=== PATIENT | male | born 1945 | race Caucasian/White ===

== ENCOUNTER 2019-11-19 07:36 | Day surgery (SDC) | payer MEDICARE, OTHER ==
[~2019-11-19] VITALS: Ht 188 cm; Wt 101.2 kg
[~2019-11-19 07:36] MED LIST: AMLODIPINE BESY10 MG PO; ATORVASTATIN CA10 MG PO; HYDROCHLOROTH12.5 M1 PO; HYDROCODON-ACE1 EA10 PO; JANUVIA100 MG PO; KEFLEX500 MG PO; LANTUS100 UNITS/ SUB-Q; LISINOPRIL20 MG PO; LISINOPRIL40 MG PO; LISINOPRIL5 MG PO; METFORMIN HCL500 M1 PO; METOPROLOL SUCC25 MG PO; MULTI VITAMIN1 EACH PO; NOVOLOG FL100 UNIT/1 SUB-Q; OMEPRAZOLE20 MG PO; PRILOSEC10 MG PO; SIMVASTATIN20 MG PO; SIMVASTATIN40 MG PO; TRIAMTERENE-HC1 EAC2 PO; VICTOZA 2-0.6 MG/0.1 SUB-Q
--- NOTE | 2019-11-19 10:00 | NUR ---
11/19/19 Kiara Rust 2037 PATIENT ARRIVES TO PACU AWAKE BUT DROWSY. RESP EVEN AND UNLABORED, ROOM AIR SATS >95%. PATIENT DENIES PAIN OR NAUSEA. REPOSITIONS SELF TO BACK. SITTING UP DRINKING JUICE.
--- NOTE | 2019-11-19 11:19 | OR ---
[facility] [address], [place] [address] Signed DATE OF OPERATION: 11/19/2019 SURGEON: Marina Cervantes MD PREOPERATIVE DIAGNOSES: 1. Rectal bleeding. 2. Radical prostatectomy, status post radiation therapy. POSTOPERATIVE DIAGNOSES: 1. Distal radiation proctitis. 2. 6 mm polyp at 5 cm. 3. Multiple 4 mm polyps at 10 cm (mid rectum). 4. 7 mm polyp at 30 cm. 5. 7 mm polyp at 75 cm. 6. 7 mm and 4 mm polyps at hepatic flexure. 7. 6 mm cecal polyp (periappendiceal). 8. 8 mm polyp mid right colon (snare). 9. 8 mm polypoid lesion at proximal transverse colon. 10. 7 mm polypoid lesion at 50 cm. 11. 4 mm polyp at 25 cm. PROCEDURE: Colonoscopy with snare polypectomy and hot biopsy. ESTIMATED BLOOD LOSS: Minimal. INDICATIONS: Ralph is a 74-year-old gentleman who has gone through a radical prostatectomy followed by radiation treatment last year. He has had some rectal bleeding. It has been on a daily basis. He has never had a previous colonoscopy. In the office, I gave him a pamphlet on colonoscopy and we reviewed that together along with the risks and benefits. He understands there is risk including, but not limited to gas bloating, crampy abdominal pain, bleeding, perforation requiring surgery, and missed diagnosis. He told me there is no family history of colon cancer or polyps. He also understands the need for IV conscious sedation. He had expressed understanding and wished to proceed. DESCRIPTION OF PROCEDURE: Ralph was taken into our endoscopy suite and placed in the left lateral decubitus position. He was worried that he only took about half of his prep. He said he started Electronically Signed By: MARINA CERVANTES MD 11/19/19 1119 PATIENT NAME: RALPH GARVEY OPERATIVE REPORT DATE OF : 47 REPORT #: [id number] PHYSICIAN: MARINA CERVANTES MD PCP: LENO SALINAS MD REPORT IS CONFIDENTIAL AND NOT TO BE RELEASED WITHOUT AUTHORIZATION [facility] [address], [place] [address] Signed to vomit. He is actually quite clean at this time except for a couple of areas which we suctioned out for the most part. I think next time if he just takes the prep slower throughout the day, he will do fine. A digital rectal exam was performed and of course, the prostate has gone and there was some induration of scar tissue in that area. The adult colonoscope was introduced and he has the expected radiation proctitis in the distal portion of the rectum. We took a single biopsy for pathologic review. The above-mentioned polyps had all been removed with the help of hot biopsy forceps. We did use the snare in the mid right colon. The scope then passed readily round into the cecum itself. We could easily see the appendiceal orifice and the ileocecal valve. The scope was then slowly withdrawn. We had taken pictures throughout for photodocumentation. Once in the rectum, the scope had been retroflexed and again, he has minimal internal hemorrhoid tissue, but he does have the radiation proctitis. After this, the gas was suctioned out and the colonoscope removed. Ralph tolerated the procedure quite well. RECOMMENDATIONS: I will see Ralph back in my office in 7 to 14 days to review his results. Given his sure number of polyps, it is probably arroyo he repeat this in 12 to 18 months. Marian Cervantes MD ALB/MODL /[id number] cc: MD Marina Belcher MD Copies: LENO SALINAS MD, ANDREW L MD ~ Electronically Signed By: MARINA CERVANTES MD 11/19/19 1119 PATIENT NAME: RALPH GARVEY OPERATIVE REPORT DATE OF : 47 REPORT #: [id number] PHYSICIAN: MARINA CERVANTES MD PCP: LENO SALINAS MD REPORT IS CONFIDENTIAL AND NOT TO BE RELEASED WITHOUT AUTHORIZATION
--- NOTE | 2019-11-20 17:24 | PATH ---
[facility] [address] [place], [place] [address] Signed SPECIMEN(S): A COLON POLYP AT 10 CM SPECIMEN(S): B COLON POLYP AT 5 CM SPECIMEN(S): C COLON BIOPSY SPECIMEN(S): D COLON POLYP SPECIMEN(S): E COLON POLYP SPECIMEN(S): F HEPATIC FLEXURE POLYP SPECIMEN(S): G CECAL POLYP SPECIMEN(S): H MID ASCENDING POLYP SPECIMEN(S): I PROXIMAL TRANSVERSE SPECIMEN(S): J COLON POLYP AT 50 CM SPECIMEN(S): K COLON POLYP AT 25 CM SPECIMEN SOURCE: A. COLON POLYP AT 10 CM B. COLON POLYP AT 5 CM C. COLON BIOPSY D. COLON POLYP E. COLON POLYP F. HEPATIC FLEXURE POLYP G. CECAL POLYP H. MID ASCENDING POLYP I. PROXIMAL TRANSVERSE J. COLON POLYP AT 50 CM K. COLON POLYP AT 25 CM CLINICAL HISTORY: Screening. MICROSCOPIC DESCRIPTION: Histologic sections of all submitted blocks are examined by light microscopy. These findings, together with the gross examination, support the pathologic diagnosis. FINAL PATHOLOGIC DIAGNOSIS: A. Colon, polyp at 10 cm, polypectomy: - Fragments of hyperplastic polyp. - Negative for dysplasia or malignancy. B. Colon, polyp at 5 cm, polypectomy: - Fragments of hyperplastic polyp. - Negative for dysplasia or malignancy. C. Colon, biopsy: - Colonic mucosa with no histopathologic abnormality. PATIENT NAME: ANGELINA GARVEY YUSRA PATHOLOGY DATE OF : 47 REPORT #: [id number] PHYSICIAN: CURTIS PATHOLOGY PCP: LENO SALINAS MD REPORT IS CONFIDENTIAL AND NOT TO BE RELEASED WITHOUT AUTHORIZATION [facility] [address] [place], [place] [address] Signed - Negative for active, chronic, or microscopic colitis. - Negative for dysplasia or malignancy. D. Colon, polyp, polypectomy: - Hyperplastic polyp. - Negative for dysplasia or malignancy. E. Colon, polyp, polypectomy: - Tubular adenoma. - Negative for high-grade dysplasia or malignancy. F. Hepatic flexure, polyp, polypectomy: - Fragments of tubular adenoma. - Negative for high-grade dysplasia or malignancy. G. Colon, cecum, polyp, polypectomy: - Fragments of tubular adenoma. - Negative for high-grade dysplasia or malignancy. H. Colon, mid ascending, polyp, polypectomy: - Fragments of tubulovillous adenoma. - Negative for high-grade dysplasia or malignancy. I. Colon, proximal transverse, polyp, polypectomy: - Colonic mucosa with no histopathologic abnormality. - Negative for dysplasia or malignancy. J. Colon, polyp at 50 cm, polypectomy: - Fragments of hyperplastic polyp. - Negative for dysplasia or malignancy. K. Colon, polyp at 25 cm, polypectomy: - Hyperplastic polyp. - Negative for dysplasia or malignancy. COMMENT: Regarding specimen C: No features consistent with radiation colitis are identified. Regarding specimen I: Multiple additional deeper levels were examined. NAL:vlg:C2NR GROSS DESCRIPTION: Eleven specimens are received in eleven containers, labeled "KG." A. The specimen, labeled "KG, colon polyp at 10 cm," is received in formalin and consists of six hugo soft tissue fragment(s) that measure 0.2 cm in greatest dimension. The specimen is entirely submitted in cassette (A1). B. The specimen, labeled "KG, colon polyp at 5 cm," is received in formalin and consists of three hugo soft tissue fragment(s) that measure 0.2 cm in PATIENT NAME: ANGELINA GARVEY PATHOLOGY DATE OF : 47 REPORT #: [id number] PHYSICIAN: CURTIS KINGSLEY PCP: LENO SALINAS MD REPORT IS CONFIDENTIAL AND NOT TO BE RELEASED WITHOUT AUTHORIZATION [facility] [address] [place], [place] [address] Signed greatest dimension. The specimen is entirely submitted in cassette (B1). C. The specimen, labeled "KG, colon biopsy/prostate carcinoma radiation," is received in formalin and consists of one hugo soft tissue fragment(s) that measure 0.2 cm in greatest dimension. The specimen is entirely submitted in cassette (C1). D. The specimen, labeled "KG, colon polyp," is received in formalin and consists of one hugo soft tissue fragment(s) that measure 0.2 cm in greatest dimension. The specimen is entirely submitted in cassette (D1). E. The specimen, labeled "KG, colon polyp," is received in formalin and consists of one hugo soft tissue fragment(s) that measure 0.2 cm in greatest dimension. The specimen is entirely submitted in cassette (E1). F. The specimen, labeled "KG hepatic flexure polyp," is received in formalin and consists of six hugo soft tissue fragment(s) that measure 0.2 cm in greatest dimension. The specimen is entirely submitted in cassette (F1). G. The specimen, labeled "KG, cecum polyp," is received in formalin and consists of six hugo soft tissue fragment(s) that measure 0.2 cm in greatest dimension. The specimen is entirely submitted in cassette (G1). H. The specimen, labeled "KG, mid ascending colon polyp," is received in formalin and consists of five hugo soft tissue fragment(s) that measure 0.5 cm in greatest dimension. The specimen is entirely submitted in cassette (H1). I. The specimen, labeled "KG, proximal transverse colon biopsy," is received in formalin and consists of one hugo soft tissue fragment(s) that measure 0.2 cm in greatest dimension. The specimen is entirely submitted in cassette (I1). J. The specimen, labeled "KG, colon polyp at 50 cm," is received in formalin and consists of two hugo soft tissue fragment(s) that measure 0.2 cm in greatest dimension. The specimen is entirely submitted in cassette (J1). K. The specimen, labeled "KG, colon polyp at 25 cm," is received in formalin and consists of two hugo soft tissue fragment(s) that measure 0.2 cm in greatest dimension. The specimen is entirely submitted in cassette (K1). JS (under the direct supervision of a pathologist) The Gross Description was prepared using a voice recognition system. The PATIENT NAME: ANGELINA GARVEY PATHOLOGY DATE OF : 47 REPORT #: [id number] PHYSICIAN: CURTIS KINGSLEY PCP: LENO SALINAS MD REPORT IS CONFIDENTIAL AND NOT TO BE RELEASED WITHOUT AUTHORIZATION [address] [address] Signed report was reviewed for accuracy; however, sound-alike word errors, addition and/or deletions may occur. If there is any question about this report, please contact Client Services. PERFORMING LABORATORY: The technical component was performed by [facility], [address] [place] [id number] (Cable Armorer: Farzana Jain MD; CLIA# [id number]). [facility], [address] [place], [place] [address] [address] (CLIA# [id number]). Diagnostician: Parvin Correa MD Pathologist Electronically Signed 11/20/2019 Copies: ~ PATIENT NAME: ANGELINA GARVEY PATHOLOGY DATE OF : 47 REPORT #: [id number] PHYSICIAN: CURTIS PATHOLOGY PCP: LENO SALINAS MD REPORT IS CONFIDENTIAL AND NOT TO BE RELEASED WITHOUT AUTHORIZATION
== END 2019-11-19 10:25 | disposition home or self-care (01) ==
LOC: DS 07:36 → OPS 07:36 → DS 09:00 → OPS 10:25
PROVIDERS: ATTEND Colon & Rectal Surgery
PROC: 0DBE8ZZ Excision of Large Intestine, Via Natural or Artificial Opening Endoscopic (ICD-10-PCS; 2019-11-19)
PROC: 0DBL8ZZ Excision of Transverse Colon, Via Natural or Artificial Opening Endoscopic (ICD-10-PCS; 2019-11-19)
PROC: 0DBH8ZZ Excision of Cecum, Via Natural or Artificial Opening Endoscopic (ICD-10-PCS; 2019-11-19)
PROC: 0DBK8ZZ Excision of Ascending Colon, Via Natural or Artificial Opening Endoscopic (ICD-10-PCS; principal; 2019-11-19 09:00)
DX: D12.0 Benign neoplasm of cecum (principal); D12.2 Benign neoplasm of ascending colon; D12.3 Benign neoplasm of transverse colon; K62.7 Radiation proctitis; F17.210 Nicotine dependence, cigarettes, uncomplicated; Z85.46 Personal history of malignant neoplasm of prostate; Z90.79 Acquired absence of other genital organ(s); Z79.899 Other long term (current) drug therapy; Z79.4 Long term (current) use of insulin
CPT/HCPCS: 99153; G0500; J2250; J3010; J7121

== ENCOUNTER 2020-09-29 04:33 | Emergency (ER) | payer MEDICARE, OTHER ==
[~2020-09-29] VITALS: Ht 188 cm; Wt 101.2 kg
[2020-09-29] MEDS ORDERED: DICLOFENAC SOD100 G1 TOP (04:53)
[2020-09-29] MEDS ORDERED: DICLOFENAC SODI75 MG PO (06:33)
[2020-09-29] MEDS ORDERED: ULTRAM50 MG PO (06:33)
== END 2020-09-29 06:43 | disposition home or self-care (01) ==
LOC: ED 04:33
DX: R10.9 Unspecified abdominal pain (principal); I10 Essential (primary) hypertension; E11.9 Type 2 diabetes mellitus without complications; Z87.891 Personal history of nicotine dependence; Z79.899 Other long term (current) drug therapy; Z79.4 Long term (current) use of insulin
CPT/HCPCS: 74176; 80053; 80500; 81001; 85025; 96374; 99284-25; J1885

== ENCOUNTER 2024-06-24 14:53 | Inpatient (IN) | payer MEDICARE, OTHER ==
[~2024-06-24] VITALS: Ht 188 cm; Wt 90.9 kg
[~2024-06-24 14:53] MED LIST changes: +DICLOFENAC SOD100 G1 TOP; +DICLOFENAC SODI75 MG PO; +HYDROCODON-ACE1 EA11 PO; +ULTRAM50 MG PO; +VICTOZA 2-0.6 MG/0.1; -VICTOZA 2-0.6 MG/0.1 SUB-Q
[2024-06-24] MEDS ORDERED: ONDANSETRON ODT4 MG PO (15:09)
[2024-06-24] MEDS ORDERED: MOUNJARO10 MG/0.5 SUB-Q (15:09)
[2024-06-24] MEDS ORDERED: SODIUM CHLORIDE 0.9% 1,000 ML IV ONE ×3 (15:30→18:15)
[2024-06-24 15:34] LABS: BASOPHILS 0.5 % (0-2); HEMATOCRIT 30.3 % (35.0-50.0); LYMPHOCYTES 17.4 % (24-44); MCH 26.5 (27-36); MCHC 33.1 g/dl (30-36); MCV 80.1 fl (81-99); MONOCYTES 13.2 % (0-12); NEUTROPHILS 66.9 % (39-80); PLATELET COUNT 81 K/uL (140-440); RBC 3.78 M/ul (4.3-5.7); RDW 16.1 (10.5-15.0)
[2024-06-24 15:50] LABS: ALBUMIN 3.6 g/dL (3.4-5.0); ALBUMIN/GLOBULIN RATIO 1.33 (1.1-2.4); ANION GAP 14.4 (7-21); BILIRUBIN, TOTAL 0.7 mg/dL (0.2-1.0); BUN/CREATININE RATIO 14.75 (6.0-28.6); CALCIUM 8.6 mg/dL (8.5-10.1); CREATININE, SERUM 3.66 mg/dL (0.70-1.30); POTASSIUM 5.4 mmol/L (3.5-5.1); PROTEIN, TOTAL 6.3 g/dL (6.4-8.2)
[2024-06-24] MEDS ORDERED: LIDOCAINE 2% VISCOUS 6 ML SYR TOP ONE (17:30)
[2024-06-24 17:55] LABS: BILIRUBIN, URINE NEGATIVE (negative); BLOOD/HGB, URINE NEGATIVE (Negative); KETONE, URINE NEGATIVE (Negative); LEUK ESTERASE, URINE NEGATIVE (negative); NITRITE, URINE NEGATIVE (negative); PH, URINE 5.5 (5-7)
[2024-06-24] MEDS ORDERED: SODIUM CHLORIDE 0.9% 1,000 ML IV SCH (19:45)
[2024-06-24] MEDS ORDERED: ondansetron HCL 4 MG/2 ML VIAL IV PRN (19:45)
[2024-06-24 20:28] VITALS: BP 131/48
--- NOTE | 2024-06-24 21:00 | NUR ---
PT ADMITTED TO ROOM 120 VIA STRETCHER. VSS. WEIGHT OBTAINED. PT ALERT & ORIENTED. REPORTS NECK PAIN 09/03. LSC. 2L O2 N/C IN PLACE. HRR. BTA. LEAVITT CATH W/ CLEAR YELLOW URINE, 175cc EMPTIED. NS INITIATED TO LAC IV AT 125MLS/HR. PT REPORTED BEING HUNGRY, ATE 100% OF SANDWICH BOX DURING ADMISSION AND DRANK MILK. CALL LIGHT WITHIN REACH.
[2024-06-24 21:09] VITALS: BP 131/48
--- NOTE | 2024-06-24 22:38 | NUR ---
DR. OLIVIA NOTIFIED OF PT'S C/O NECK PAIN AND NO ORDERS FOR PAIN RELIEF. RECEIVED ORDERS FOR PRN TYLENOL AND DAILY LIDOCAINE PATCH.
[2024-06-24] MEDS ORDERED: ACETAMINOPHEN 325 MG TAB PO PRN (22:45)
--- NOTE | 2024-06-24 22:54 | NUR ---
PT SLEEPING SOUNDLY ON LEFT SIDE. APPEARS COMFORTABLE.
[2024-06-25] VITALS (7 sets, daily range): BP systolic 105–130; BP diastolic 41–58
--- NOTE | 2024-06-25 00:01 | NUR ---
PT REPOSITIONED SELF TO RIGHT SIDE. WARM BLANKET GIVEN FOR COLD FEET. LV LAC INFUSING NS WNL.
--- NOTE | 2024-06-25 00:45 | NUR ---
RATE REVIEWER OBTAINED VITALS AND I&O. LEAVITT BAG EMPTIED. PT STATES NO NEEDS AT THIS TIME. CALL LIGHT WITHIN REACH.
--- NOTE | 2024-06-25 01:20 | NUR ---
PT SLEEPING SOUNDLY, HAS REPOSITIONED SELF TO LEFT SIDE. APPEARS COMFORTABLE.
--- NOTE | 2024-06-25 03:10 | NUR ---
PT SLEEPING SOUNDLY. APPEARS COMFORTABLE. LEAVITT W/ CLEAR YELLOW URINE.
--- NOTE | 2024-06-25 04:32 | NUR ---
PT SLEEPING SOUNDLY ON LEFT SIDE. IVF INFUSING TO LAC IV (WNL). LEAVITT CATH W/ 550cc CLEAR YELLOW URINE.
[2024-06-25 05:44] LABS: BASOPHILS 0.5 % (0-2); EOSINOPHILS 0.8 % (0-6); LYMPHOCYTES 19.5 % (24-44); MCH 26.5 (27-36); MCHC 33.4 g/dl (30-36); MCV 79.3 fl (81-99); MONOCYTES 11.7 % (0-12); NEUTROPHILS 67.5 % (39-80); RDW 15.5 (10.5-15.0)
[2024-06-25 05:57] LABS: PLATELET COUNT 43 K/uL (140-440)
[2024-06-25 05:58] LABS: SMEAR REVIEW BLOOD SEE COMMENTS
[2024-06-25 05:59] LABS: ALBUMIN 3.2 g/dL (3.4-5.0); ALBUMIN/GLOBULIN RATIO 1.28 (1.1-2.4); ANION GAP 12.1 (7-21); BILIRUBIN, TOTAL 0.6 mg/dL (0.2-1.0); BUN/CREATININE RATIO 21.55 (6.0-28.6); CALCIUM 7.9 mg/dL (8.5-10.1); CREATININE, SERUM 2.18 mg/dL (0.70-1.30); POTASSIUM 5.1 mmol/L (3.5-5.1); PROTEIN, TOTAL 5.7 g/dL (6.4-8.2)
--- NOTE | 2024-06-25 07:33 | NUR ---
REPORT RECEIVED FROM BRITTANY ARREAGA. PATIENT RESTING IN BED WITH EYES CLOSED, WAKES TO GREET THIS RN AND CLOSES HIS EYES AGAIN. NO REQUESTS. CALL LIGHT IN REACH.
--- NOTE | 2024-06-25 08:16 | EKG ---
[facility] [address] [facility] [place] [address] Signed Junctional rhythm Low voltage QRS Cannot rule out Anterior infarct , age undetermined Abnormal ECG When compared with ECG of 18-JUL-2023 09:18, Junctional rhythm has replaced Sinus rhythm Confirmed by Jarrell Olivia DO ([id number]) on 06/25/2024 8:15:43 AM Electronically Signed By: JARRELL OLIVIA DO 06/25/24 0816 PATIENT NAME: GURUANGELINALESLY MENG Electrocardiogram DATE OF : 47 PHYSICIAN: JARRELL OLIVIA DO REPORT #: [id number] REPORT IS CONFIDENTIAL AND NOT TO BE RELEASED WITHOUT AUTHORIZATION
[2024-06-25] MEDS ORDERED: METFORMIN HCL500 MG PO (08:25)
[2024-06-25] MEDS ORDERED: HYDROCODON-ACE1 EA10 PO (08:26)
--- NOTE | 2024-06-25 08:26 | NUR ---
MD GIVES VERBAL ORDER FOR BNP LAB. ORDER PLACED.
--- NOTE | 2024-06-25 08:46 | NUR ---
PATIENT ASSISTED TO TRANSFER WITH SBA ONLY FROM BED TO WHEELCHAIR TO GO TO IMAGING. PATIENT IS IN IMAGING AND OFF THE FLOOR AT THIS TIME.
[2024-06-25] MEDS ORDERED: LIDOCAINE HCL 4% 1 EACH PATCH TD SCH (09:00)
--- NOTE | 2024-06-25 09:23 | NUR ---
PATIENT RETURNS FROM IMAGING ON ROOM AIR. PATIENT TRANSFERS FROM WHEELCHAIR TO BED WITH SBA. PATIENT SITS ON BEDSIDE FOR ASSESSMENT. ASSESSMENT COMPLETE. PATIENT REMAINS ON ROOM AIR THROUGHOUT ASSESSMENT AND DENIES SOB. SPO2 SUSTAINS>95% THROUGHOUT. PATIENT INDEPENDENTLY SWINGS LEGS INTO BED. CASE MANAGEMENT ARRIVES TO SPEAK WITH PATIENT. WHILE RESTING IN BED WITH HOB ELEVATED PATIENT CONTINUES TO DENY SHORTNESS OF BREATH BUT REPORTS FEELING COMFORT WITH THE NC IN PLACE AT 2L. PATIENT REAPPLIES HIS NC. SPO2 CONTINUES TO SUSTAIN>95%. PATIENT LUNG SOUNDS ARE CLEAR THROUGHOUT. PATIENT HAS NO REQUESTS AT THIS TIME, AGREEABLE TO PLAN OF WAITING FOR LAB AND IMAGING RESULTS. CALL LIGHT AND PERSONAL BELONGINGS ARE IN REACH. OPAL FROM PHARMACY ARRIVES THIS RN IS LEAVING.
--- NOTE | 2024-06-25 09:30 | NUR ---
INTO SEE PATIENT. PERSONAL HEALTH INFORMATION REVIEWED. PATIENT LIVES IN A HOUSE WITH 2 STEPS DENIES DIFFCULTY DOING THEM. PATIENT DENIES USING DME. PATIENT DRIVES SELF AND LIVES ALONE. DENIES DIFFCULTY PAYING UTILITIES OR OBTAINING FOOD. PATIENT BROTHER IN [place] TO TAKE HIM HOME WHEN MEDICALLY CLEARED FOR DISCHARGE. NO FUTHER CM NEEDS AT THIS TIME.
--- NOTE | 2024-06-25 09:43 | NUR ---
PATIENT AMBULATES WITH LINE AND TUBE MANAGEMENT FROM BED TO RESTROOM AND THEN TO RECLINER. PATIENT ON ROOM AIR THROUGHOUT, DENIES SOB. SPO2 98% WHILE SITTING IN RECLINER. PATIENT CONTINUES TO DENY SOB, REMAINS ON RA AT THIS TIME. PATIENT IS USING THE PHONE. CALL LIGHT AND PERSONAL BELONGINGS IN REACH.
--- NOTE | 2024-06-25 09:51 | NUR ---
MED REC COMPLETE
[2024-06-25] MEDS ORDERED: bisacodyL 10 MG SUPP PR PRN (10:00)
[2024-06-25] MEDS ORDERED: DEXTROSE 50% 50 ML SYR IV PRN ×2 (10:00)
[2024-06-25] MEDS ORDERED: ondansetron HCL 4 MG/2 ML VIAL IV PRN (10:00)
[2024-06-25] MEDS ORDERED: DEXTROSE 5% 1,000 ML IV PRN (10:00)
[2024-06-25] MEDS ORDERED: GLUCAGON,HUMAN RECOMBINANT 1 MG/ML VIAL SUB-Q PRN (10:00)
[2024-06-25] MEDS ORDERED: IBLOOD GLUCOSE TEST STRIP 1 EA TEST XX PRN (10:00)
[2024-06-25] MEDS ORDERED: LINEZOLID 600 MG TAB PO SCH (10:20)
[2024-06-25 10:54] LABS: LACTIC ACID, BLOOD 1.9 mmol/L (0.4-2.0)
--- NOTE | 2024-06-25 11:30 | NUR ---
IMAGING ARRIVES TO ESCORT PATIENT TO IMAGING. PATIENT OFF THE FLOOR AT THIS TIME.
[2024-06-25] MEDS ORDERED: PHARMACY RENAL DOSE ADJUSTMENT 1 DOSE MISC PO SCH (12:00)
[2024-06-25] MEDS ORDERED: IBLOOD GLUCOSE TEST STRIP 1 EA TEST VI SCH (12:00)
[2024-06-25] MEDS ORDERED: INSULIN LISPRO 100 UNIT/ML ML SUB-Q SCH (12:00)
--- NOTE | 2024-06-25 13:17 | NUR ---
VISITED DURING SPIRITUAL CARE ROUNDS. PT APPEARED TO BE SLEEPING. DID NOT DISTURB. PROVIDED PRAYER.
--- NOTE | 2024-06-25 13:31 | NUR ---
UR CLINICAL REVIEW: 2MN MITCHEL, MEETS INPT FOR CONOR CREATINE BASELINE 1.1-1.2, CURRENT CREAT 2.1, IV FLUIDS, TREND LABS MEDICARE INPT 06/24/2024 @ 1931 ORDER MATCHES REG NO AUTH REQUIRED PER MEDICARE RULES DC TO HOME WHEN MEDICALLY CLEARED.
[2024-06-25] MEDS ORDERED: PIPERACILLIN/TAZOBACTAM 3.375 GM in SODIUM CHLORIDE 0.9% 100 ML IV SCH (14:00)
[2024-06-25] MEDS ORDERED: LIDOCAINE PATCH REMOVAL 1 EA TD SCH (21:00)
[2024-06-25] MEDS ORDERED: MELATONIN 3 MG TAB PO PRN (21:00)
[2024-06-27 03:13] LABS: IRON BINDING CAPACITY TOTAL 339 ug/dL (240-450); IRON,SERUM OR PLASMA 23 ug/dL (45-182); TRANSFERRIN SATURATION 7 %sat (20-50)
[2024-06-27 05:16] LABS: FERRITIN 14 ng/mL (31-409)
== END 2024-06-25 16:40 | disposition home or self-care (01) | DRG 683 ==
LOC: ED 14:53 → MS 19:31
PROVIDERS: Emergency Medicine; ADMIT Student in an Organized Health Care Education/Training Program; ATTEND Student in an Organized Health Care Education/Training Program
PROC: 0T9B70Z Drainage of Bladder with Drainage Device, Via Natural or Artificial Opening (ICD-10-PCS; principal; 2024-06-24)
DX: N17.9 Acute kidney failure, unspecified (principal); J90 Pleural effusion, not elsewhere classified; R18.8 Other ascites; I10 Essential (primary) hypertension; E11.9 Type 2 diabetes mellitus without complications; Z66 Do not resuscitate; E78.5 Hyperlipidemia, unspecified; M54.2 Cervicalgia; G89.29 Other chronic pain; J44.9 Chronic obstructive pulmonary disease, unspecified; K21.9 Gastro-esophageal reflux disease without esophagitis; Z60.2 Problems related to living alone; R16.0 Hepatomegaly, not elsewhere classified; E86.0 Dehydration; K74.60 Unspecified cirrhosis of liver; K80.20 Calculus of gallbladder without cholecystitis without obstruction; B18.2 Chronic viral hepatitis C; R91.1 Solitary pulmonary nodule; D69.59 Other secondary thrombocytopenia; Z87.891 Personal history of nicotine dependence; Z90.49 Acquired absence of other specified parts of digestive tract; Z79.899 Other long term (current) drug therapy; Z90.79 Acquired absence of other genital organ(s); Z79.891 Long term (current) use of opiate analgesic; Z79.84 Long term (current) use of oral hypoglycemic drugs; Z79.811 Long term (current) use of aromatase inhibitors; Z87.438 Personal history of other diseases of male genital organs; Z85.46 Personal history of malignant neoplasm of prostate; Z92.21 Personal history of antineoplastic chemotherapy
CPT/HCPCS: 36415; 51702; 51798; 71045; 71250; 74176; 74183; 80053; 81003; 82728; 83036; 83550; 83605; 83735; 83880; 84439; 84443; 85025; 85060; 93005; 93010; 94762; 97161; 97165; 99285-25; A4311; A9270; A9579; J7030

== ENCOUNTER 2024-06-26 08:12 | Emergency (ER) | payer MEDICARE, OTHER ==
[~2024-06-26] VITALS: Ht 188 cm; Wt 89.8 kg
[~2024-06-26 08:12] MED LIST changes: +METFORMIN HCL500 MG PO; +MOUNJARO10 MG/0.5 SUB-Q; +ONDANSETRON ODT4 MG PO
--- OUTSIDE RECORDS SUMMARY | 2024-06-26 08:19 | XMS ---
PreManage Notification: ANGELINA GARVEY Security Change Number Operator Events No recent Security Events currently on file CRITERIA MET - [facility] - 2 Visits in 30 Days CARE PROVIDERS LENO SALINAS Internal Medicine Current PHONE: Unknown Mirlande has no Care Guidelines for this patient. Enoch VISIT COUNT (12 MO.) 2 [facility] TOTAL 2 NOTE: Visits indicate total known visits. ED/UCC VISIT TRACKING (12 MO.) 06/26/2024 08:13 [facility] TYPE: Emergency COMPLAINT: - CATHETER PROBLEM 06/24/2024 14:54 [facility] TYPE: Emergency COMPLAINT: - UNABLE TO URINATE/DIZZIE INPATIENT VISIT TRACKING (12 MO.) 06/24/2024 19:31 [facility] TYPE: Medical Surgical COMPLAINT: - CONOR DIAGNOSES: - Acquired absence of other genital organ(s) - Acquired absence of other specified parts of digestive tract - Acute kidney failure, unspecified - Calculus of gallbladder without cholecystitis without obstruction - Cervicalgia - Chronic obstructive pulmonary disease, unspecified - Chronic viral hepatitis C - Dehydration - Do not resuscitate - Essential (primary) hypertension - Gastro-esophageal reflux disease without esophagitis - Hepatomegaly, not elsewhere classified - Hyperlipidemia, unspecified - halfway (current) use of aromatase inhibitors - intermediate project manager (current) use of opiate analgesic - intermediate project manager (current) use of oral hypoglycemic drugs - Other ascites - Other chronic pain - Other custodial (current) drug therapy - Other secondary thrombocytopenia - Personal history of antineoplastic chemotherapy - Personal history of malignant neoplasm of prostate - Personal history of nicotine dependence - Personal history of other diseases of male genital organs - Pleural effusion, not elsewhere classified - Problems related to living alone - Solitary pulmonary nodule - Type 2 diabetes mellitus without complications - Unspecified cirrhosis of liver [email or web address]
[2024-06-26 09:08] VITALS: BP 154/67
== END 2024-06-26 09:08 | disposition home or self-care (01) ==
LOC: ED 08:12
DX: Z46.6 Encounter for fitting and adjustment of urinary device (principal); C61 Malignant neoplasm of prostate; Z87.891 Personal history of nicotine dependence; I10 Essential (primary) hypertension; E11.9 Type 2 diabetes mellitus without complications
CPT/HCPCS: 99283